=== PATIENT | female | born 1965 | race Caucasian/White ===

== ENCOUNTER 2018-07-27 15:54 | Inpatient (IN) | payer OTHER ==
[~2018-07-27] VITALS: Ht 160 cm; Wt 66.5 kg
[~2018-07-27 15:54] MED LIST: ASPI325T17 PO
[2018-07-27] MEDS ORDERED: ASPIRIN 81 MG TABLET CHEW PO ONE (16:30)
[2018-07-27 17:02] LABS: BASOPHILS # (AUTO) 0.02 x10^3/uL (0-0.1); BASOPHILS % (AUTO) 1 % (0-1); EOSINOPHILS # (AUTO) 0.03 x10^3/uL (0-0.4); EOSINOPHILS % (AUTO) 1 % (1-7); LYMPHOCYTES # (AUTO) 1.39 x10^3/uL (1-3.4); LYMPHOCYTES % (AUTO) 27 % (22-44); MD NO; MEAN CORPUSCULAR HEMOGLOBIN 34.5 pg (27.0-34.8); MEAN CORPUSCULAR HGB CONC 34.8 g/dL (32.4-35.8); MEAN PLATELET VOLUME 8.3 fL (7.4-10.4); MONOCYTES # (AUTO) 0.32 x10^3/uL (0.2-0.8); MONOCYTES % (AUTO) 6 % (2-9); NEUTROPHILS # (AUTO) 3.44 x10^3/uL (1.8-6.8); NEUTROPHILS % (AUTO) 66 % (42-75); PLATELET COUNT 245 x10^3/uL (130-400); RED BLOOD COUNT 4.24 x10^6/uL (3.82-5.3); RED CELL DISTRIBUTION WIDTH 12.7 % (9.6-15.2)
[2018-07-27 17:10] LABS: ALBUMIN 3.8 g/dL (3.4-5.0); ANION GAP 7 mmol/L (5-15); CALCIUM 8.7 mg/dL (8.5-10.1); CHLORIDE 107 mmol/L (98-107); CREATININE 0.66 mg/dL (0.55-1.02)
[2018-07-27 17:48] LABS: INTERNATIONAL NORMALIZED RATIO 1.08 (0.93-1.1); PROTHROMBIN TIME 11.4 Seconds (9.6-11.5)
[2018-07-27] MEDS ORDERED: MECLIZINE 12.5 MG TABLET PO PRN (19:30)
[2018-07-27] MEDS ORDERED: DOCUSATE 100 MG CAPSULE PO PRN (19:30)
[2018-07-27] MEDS ORDERED: ACETAMINOPHEN 325 MG TABLET PO PRN (19:30)
[2018-07-27] MEDS ORDERED: ONDANSETRON 4 MG TABLET PO PRN (19:30)
[2018-07-27 20:05] VITALS: BP 114/66
[2018-07-27 21:00] VITALS: BP 114/66
[2018-07-27 23:00] LABS: HEMOGLOBIN A1C 6.2 % (4.2-6.3)
[2018-07-27] MEDS: INSULIN LISPRO 100 UNITS/ML, PEN SQ-INSULIN SCH (23:47)
[2018-07-28 00:57] VITALS: BP 99/52
[2018-07-28 06:11] LABS: CHOL/HDL RATIO 3.1; LDL/HDL RATIO 1.8 (0.5-3.0)
[2018-07-28] MEDS: INSULIN LISPRO 100 UNITS/ML, PEN SQ-INSULIN SCH ×2 (07:00→11:00)
[2018-07-28 07:02] VITALS: BP 106/69
[2018-07-28] MEDS ORDERED: ASPIRIN 81 MG TABLET CHEW PO/NG SCH (09:00)
[2018-07-28 12:39] VITALS: BP 110/67
[2018-07-28] MEDS ORDERED: MECLIZINE CHEWABLE 25 MG TAB ONE (12:56)
[2018-07-28] MEDS ORDERED: MECLIZINE 12.5 MG TABLET PO PRN (13:00)
[2018-07-28 13:18] LABS: ALANINE AMINOTRANSFERASE 22 U/L (12-78)
[2018-07-28] MEDS ORDERED: MECL12.52 PO (14:46)
[2018-07-28] MEDS ORDERED: SIMVASTATIN 40 MG TABLET PO SCH (21:00)
== END 2018-07-28 16:25 | disposition home or self-care (01) | DRG 69 ==
LOC: ED 17:15 → EDIP 18:36 → 4EST 20:03 → DCLOUNGE 07-28 16:12
PROVIDERS: ADMIT Hospitalist; ATTEND Hospitalist
DX: G45.9 Transient cerebral ischemic attack, unspecified (principal); R73.9 Hyperglycemia, unspecified; R42 Dizziness and giddiness; Z82.49 Family history of ischemic heart disease and other diseases of the circulatory system; Z83.3 Family history of diabetes mellitus
CPT/HCPCS: 36415; 70450; 70551; 71045; 80048; 80061; 82040; 82962; 83036; 84450; 84460; 85025; 85610; 85730; 93005; 99285; G0378